=== PATIENT | female | born 1970 | race Asian ===

== ENCOUNTER 2018-02-20 15:00 | Outpatient (CLI) | payer MEDICARE, MEDICAID | END 2018-02-20 15:01 | disposition home or self-care (01) | DRG 554 | LOC: CONVCARE 15:00 | PROVIDERS: ATTEND Orthopaedic Surgery | DX: M94.262 Chondromalacia, left knee (principal); M94.261 Chondromalacia, right knee | CPT/HCPCS: 73562 ==

== ENCOUNTER 2018-07-02 08:40 | Day surgery (SDC) | payer MEDICARE, MEDICAID ==
[~2018-07-02 08:40] MED LIST: FENTANYL 100MCG/2ML SOL ONE; MIDAZOLAM 2 MG/2 ML SOL ONE; ONDANSETRON HCL 4 MG/2 ML SOL ONE; PROPOFOL 10 MG/ML EMU IV ONE
[2018-07-02] MEDS ORDERED: CLINDAMYCIN 150 MG/ML SOL ONE (09:03)
[2018-07-02] MEDS ORDERED: DEXAMETHASONE 20 MG/5 ML (4 MG/ML SOL) ONE (10:10)
[2018-07-02] MEDS ORDERED: PROPOFOL 10 MG/ML EMU IV ONE (10:34)
[2018-07-02] MEDS ORDERED: KETOROLAC TROMETHAMINE 30 MG/ML SOL ONE (10:37)
[2018-07-02] MEDS ORDERED: NALOXONE HYDROCHLORIDE 0.4 MG/ML SOL ONE (10:42)
[2018-07-02] MEDS ORDERED: HYDROMORPHONE 1 MG/ML SYRINGE ONE (10:56)
[2018-07-02 11:57] VITALS: BP 126/81; PULSE 81; RESP 20; TEMP 97.5; O2SAT 98
[2018-07-02] MEDS ORDERED: APAP/HYDROCODONE 325/5 TAB ONE (12:39)
== END 2018-07-02 13:10 | disposition home or self-care (01) | DRG 950 ==
LOC: SURG 08:40
PROVIDERS: ATTEND Orthopaedic Surgery
DX: S83.232D Complex tear of medial meniscus, current injury, left knee, subsequent encounter (principal); E11.9 Type 2 diabetes mellitus without complications; M22.42 Chondromalacia patellae, left knee
CPT/HCPCS: 99070; J1100; J1885; J2250; J2310; J2405; J3010; J3490; A9270-GY; J1170; J2704

== ENCOUNTER 2018-08-27 11:07 | Outpatient (CLI) | payer MEDICARE, MEDICAID ==
[2018-07-02 11:57] VITALS: O2SAT 98
== END 2018-08-27 11:08 | disposition home or self-care (01) | DRG 951 ==
LOC: CONVCARE 11:07
PROVIDERS: ATTEND Orthopaedic Surgery
DX: Z98.890 Other specified postprocedural states (principal)
CPT/HCPCS: 73562

== ENCOUNTER 2019-05-13 11:39 | Outpatient (CLI) | payer MEDICARE, MEDICAID ==
[2018-07-02 11:57] VITALS: O2SAT 98
== END 2019-05-13 11:40 | disposition home or self-care (01) | DRG 556 ==
LOC: CONVCARE 11:39
PROVIDERS: ATTEND Orthopaedic Surgery
DX: M25.562 Pain in left knee (principal)
CPT/HCPCS: 73562

== ENCOUNTER 2019-05-28 18:45 | Emergency (ER) | payer MEDICARE, MEDICAID ==
[2019-05-28 18:53] VITALS: TEMP 97.7
[2019-05-28] MEDS ORDERED: PREDNISONE 5 MG TAB ONE (19:07)
[2019-05-28] MEDS ORDERED: PREDNISONE 10 MG TAB PO SCH (19:15)
[2019-05-28 19:19] LABS: BASOPHILS % (AUTO) 0 % (0-3); EOSINOPHILS % (AUTO) 1 % (0-9); HEMATOCRIT 45 % (35-47); HEMOGLOBIN 14.7 gm/dl (12.0-15.5); LYMPHOCYTES % (AUTO) 13.9 % (10-50); MEAN CORPUSCULAR HEMOGLOBIN 28.7 pg (27.0-32.0); MEAN CORPUSCULAR HGB CONC 32.5 gm/dl (32.0-36.0); MEAN CORPUSCULAR VOLUME 88 fL (81-99); MONOCYTES % (AUTO) 3.3 % (0-12)
[2019-05-28 19:28] LABS: CALCIUM 8.3 mg/dl (8.5-10.1); CARBON DIOXIDE 26.2 mEq/L (21-32); CREATININE 0.71 mg/dl (0.60-1.00)
[2019-05-28 19:32] VITALS: RESP 18
[2019-05-28] MEDS ORDERED: SODIUM CHLORIDE 0.9% 1000ML 1,000 ML IV ONE (19:52)
[2019-05-28 20:10] LABS: APPEARANCE,URINE Cloudy; BILIRUBIN,URINE NEGATIVE (NEGATIVE); COLOR,URINE Dark yellow; GLUCOSE, URINE (UA) NEGATIVE (NEGATIVE); KETONES,URINE 3+ (NEGATIVE); LEUKOCYTE ESTERASE ,URINE TRACE (NEGATIVE); NITRATE,URINE NEGATIVE (NEGATIVE); OCCULT BLOOD,URINE NEGATIVE (NEG-TRACE); PH,URINE 5.5; UROBILINOGEN,URINE 0.2 (0.2-1.0 EU)
[2019-05-28 20:25] LABS: BACTERIA 1+ (< 1+); CRYSTALS NEGATIVE (0-3 AVE/HPF); EPITHELIAL CELLS 0-3 (SQUAMOUS); RBC,URINE 0-3 (0-3AV/HPF); WBC,URINE 20-30 (0-5AV/HPF)
[2019-05-28 20:48] VITALS: BP 158/100; PULSE 96; O2SAT 96
== END 2019-05-28 20:45 | disposition home or self-care (01) | DRG 690 ==
LOC: ED 18:45
DX: N30.00 Acute cystitis without hematuria (principal); E86.0 Dehydration; R21 Rash and other nonspecific skin eruption
CPT/HCPCS: 36415; 80048; 81001; 85025; 99283; A9270-GY

== ENCOUNTER 2019-06-17 07:44 | Day surgery (SDC) | payer MEDICARE, MEDICAID | END 2019-06-17 09:35 | disposition home or self-care (01) | LOC: SURG 07:44 ==